=== PATIENT | female | born 1995 | race African-American/Black ===

== ENCOUNTER 2021-03-17 22:01 | Emergency (ER) | payer SELFPAY ==
[~2021-03-17] VITALS: Ht 165.1 cm; Wt 67.0 kg
[2021-03-17 23:03] VITALS: BP 149/90
== END 2021-03-17 23:52 | disposition home or self-care (01) ==
LOC: ER 22:01
DX: R55 Syncope and collapse (principal)
CPT/HCPCS: 81025; 93005; 99283